=== PATIENT | female | born 1995 | race Caucasian/White ===

== ENCOUNTER 2017-12-03 18:31 | Inpatient (IN) | payer MEDICAID ==
[~2017-12-03] VITALS: Ht 162.6 cm; Wt 81.2 kg
[2017-12-03 18:33] VITALS: Ht 162.6 cm; Wt 81.2 kg
[2017-12-03 20:24] LABS: BASOPHIL % 0.2 % (0-2); PLATELET COUNT 323 x10^3mcL (130-400)
[2017-12-03 20:25] LABS: RED CELL DISTRIBUTION WIDTH 14.6 % (11.5-14.5)
[2017-12-03 20:27] LABS: CALCIUM 8.9 mg/dL (8.5-10.1); CARBON DIOXIDE 25.2 mmol/L (21-32); CHLORIDE SERUM 108 mmol/L (98-107); CREATININE SERUM 0.7 mg/dL (0.6-1.0); GFR1 > 60 mL/min; GLUCOSE SERUM 122 mg/dL (74-106); POTASSIUM SERUM 3.6 mmol/L (3.5-5.1); SODIUM SERUM 146 mmol/L (136-145)
[2017-12-03 20:32] LABS: ALBUMIN 3.6 g/dL (3.4-5.0); ALKALINE PHOSPHATASE 269 U/L (46-116); ALT/SGPT 294 U/L (14-59); AST/SGOT 112 U/L (15-37); BILIRUBIN TOTAL 0.44 mg/dL (0.20-1.00); TOTAL PROTEIN, SERUM 7.8 g/dL (6.4-8.2)
[2017-12-03 23:47] LABS: PHOSPHOROUS 4.2 mg/dL (2.5-4.9)
[2017-12-03 23:48] LABS: CHOLESTEROL/HDL RATIO 7.4
[2017-12-03 23:55] LABS: FREE T4 1.28 ng/dL (0.76-1.46); FREE THYROXINE INDEX 2.8 ug/dL (1.4-4.5); T4(THYROXINE) 8.4 ug/dL (4.7-13.3)
[2017-12-04] VITALS: BP 119/69
[2017-12-04 00:28] LABS: T3 TOTAL 1.04 ng/mL
[2017-12-04 05:57] VITALS: BP 142/61
[2017-12-04 08:22] LABS: BASOPHIL % 0.4 % (0-2); PLATELET COUNT 321 x10^3mcL (130-400)
[2017-12-04 08:27] LABS: CALCIUM 8.4 mg/dL (8.5-10.1); CARBON DIOXIDE 26.6 mmol/L (21-32); CHLORIDE SERUM 107 mmol/L (98-107); CREATININE SERUM 0.6 mg/dL (0.6-1.0); GFR1 > 60 mL/min; GLUCOSE SERUM 91 mg/dL (74-106); POTASSIUM SERUM 4.1 mmol/L (3.5-5.1); SODIUM SERUM 141 mmol/L (136-145)
[2017-12-04 09:36] LABS: AMPHETAMINE QUAL UR NONE DETECTED (NEG <=1000)
[2017-12-04 09:44] VITALS: BP 104/65
[2017-12-04 13:06] VITALS: BP 119/67
[2017-12-04 14:30] LABS: UA SPECIFIC GRAVITY <=1.005 (1.005-1.035); microscopic required? YES; urine erythrocyte 3+ (NEGATIVE)
[2017-12-04 16:42] VITALS: BP 106/59
[2017-12-04 21:35] VITALS: BP 109/76
[2017-12-05 06:14] VITALS: BP 122/69
[2017-12-05 06:38] LABS: BASOPHIL % 0.2 % (0-2); PLATELET COUNT 343 x10^3mcL (130-400)
[2017-12-05 07:02] LABS: ALBUMIN 3.5 g/dL (3.4-5.0); ALKALINE PHOSPHATASE 220 U/L (46-116); ALT/SGPT 209 U/L (14-59); AST/SGOT 33 U/L (15-37); BILIRUBIN DIRECT 0.15 mg/dL (0.0-0.2); BILIRUBIN TOTAL 0.38 mg/dL (0.20-1.00); CARBON DIOXIDE 22.5 mmol/L (21-32); CHLORIDE SERUM 106 mmol/L (98-107); CREATININE SERUM 0.6 mg/dL (0.6-1.0); GFR1 > 60 mL/min; GLUCOSE SERUM 93 mg/dL (74-106); LIPASE 273 IU/L (73-393); POTASSIUM SERUM 4.1 mmol/L (3.5-5.1); SODIUM SERUM 142 mmol/L (136-145); TOTAL PROTEIN, SERUM 8.2 g/dL (6.4-8.2)
[2017-12-05 14:15] VITALS: BP 106/54
[2017-12-05 18:12] VITALS: BP 114/67
[2017-12-05 21:36] VITALS: BP 115/62
[2017-12-06 04:49] VITALS: BP 118/56
[2017-12-06 06:51] LABS: CALCIUM 8.7 mg/dL (8.5-10.1); CARBON DIOXIDE 26.4 mmol/L (21-32); CHLORIDE SERUM 106 mmol/L (98-107); CREATININE SERUM 0.6 mg/dL (0.6-1.0); GFR1 > 60 mL/min; GLUCOSE SERUM 90 mg/dL (74-106); POTASSIUM SERUM 3.9 mmol/L (3.5-5.1); SODIUM SERUM 142 mmol/L (136-145)
[2017-12-06 06:57] LABS: BASOPHIL % 0.1 % (0-2); PLATELET COUNT 329 x10^3mcL (130-400)
[2017-12-06 07:10] LABS: RED CELL DISTRIBUTION WIDTH 15.1 % (11.5-14.5)
[2017-12-06 09:25] VITALS: BP 113/62
[2017-12-06 12:09] VITALS: BP 110/64
[2017-12-06 16:51] VITALS: BP 109/65
[2017-12-06 20:40] VITALS: BP 103/60
[2017-12-07 06:07] VITALS: BP 122/56
[2017-12-07 07:19] LABS: BASOPHIL % 0.2 % (0-2); PLATELET COUNT 319 x10^3mcL (130-400)
[2017-12-07 07:30] LABS: CALCIUM 8.7 mg/dL (8.5-10.1); CARBON DIOXIDE 22.2 mmol/L (21-32); CHLORIDE SERUM 103 mmol/L (98-107); CREATININE SERUM 0.7 mg/dL (0.6-1.0); GFR1 > 60 mL/min; GLUCOSE SERUM 93 mg/dL (74-106); SODIUM SERUM 138 mmol/L (136-145)
[2017-12-07 09:01] VITALS: BP 109/64
[2017-12-07 13:00] VITALS: BP 119/73
[2017-12-07 14:06] VITALS: BP 119/73
[2017-12-07] MEDS ORDERED: MOT600 PO (14:10)
[2017-12-07] MEDS ORDERED: LAC PO (14:10)
[2017-12-07] MEDS ORDERED: KEFLEX500 M1 PO (14:10)
[2017-12-07] MEDS ORDERED: COL100 PO (14:10)
== END 2017-12-07 16:13 | disposition home or self-care (01) | DRG 263 ==
LOC: ED 18:31 → DU 22:48 → MU 12-07 08:40
PROVIDERS: Emergency Medicine; Family Medicine Sports Medicine; Surgery
PROC: 0FT44ZZ Resection of Gallbladder, Percutaneous Endoscopic Approach (ICD-10-PCS; principal; 2017-12-05 08:00)
DX: K85.10 Biliary acute pancreatitis without necrosis or infection (principal); N17.0 Acute kidney failure with tubular necrosis; K80.00 Calculus of gallbladder with acute cholecystitis without obstruction; K76.0 Fatty (change of) liver, not elsewhere classified; N39.0 Urinary tract infection, site not specified; N93.8 Other specified abnormal uterine and vaginal bleeding; E78.5 Hyperlipidemia, unspecified; Z53.29 Procedure and treatment not carried out because of patient's decision for other reasons; E66.9 Obesity, unspecified; Z68.30 Body mass index [BMI] 30.0-30.9, adult
CPT/HCPCS: 84439; J0330; J0696; J1885; J2250; J2270; J2405; J2543; J2704; J2710; J3010; J3490; J7030; J7120; Q0092; Q9967

== ENCOUNTER 2019-05-26 21:17 | Emergency (ER) | payer MEDICAID ==
[~2019-05-26] VITALS: Ht 162.6 cm; Wt 90.7 kg
[~2019-05-26 21:17] MED LIST: COL100 PO; KEFLEX500 M1 PO; LAC PO; MOT600 PO
[2019-05-26 21:25] VITALS: BP 136/73; Ht 162.6 cm; Wt 90.7 kg
== END 2019-05-27 00:54 | disposition home or self-care (01) ==
LOC: ED 21:17
DX: H00.015 Hordeolum externum left lower eyelid (principal)

== ENCOUNTER 2020-05-30 19:06 | Emergency (ER) | payer MEDICAID ==
[~2020-05-30] VITALS: Ht 165.1 cm; Wt 88.5 kg
[2020-05-30 19:30] VITALS: Ht 165.1 cm; Wt 88.5 kg
[2020-05-30 20:30] VITALS: BP 121/74
== END 2020-05-30 20:30 | disposition home or self-care (01) ==
LOC: ED 19:06
DX: S76.012A Strain of muscle, fascia and tendon of left hip, initial encounter (principal); Z87.19 Personal history of other diseases of the digestive system; X50.0XXA Overexertion from strenuous movement or load, initial encounter; Y93.89 Activity, other specified; Y92.89 Other specified places as the place of occurrence of the external cause; Y99.8 Other external cause status